=== PATIENT | female | born 1995 | race Two or more races ===

== ENCOUNTER 2016-12-18 02:39 | Emergency (ER) | payer SELFPAY ==
[~2016-12-18] VITALS: Ht 162.6 cm; Wt 78.5 kg
[2016-12-18] MEDS ORDERED: FENTANYL PF 100 MCG/2 ML VIAL. IV PRN (03:15)
[2016-12-18] MEDS ORDERED: IV NORMAL SALINE 1000ML BAG 1,000 ML IV SCH (03:15)
[2016-12-18 03:27] LABS: BASO % 0 % (0-3); EOS % 1 % (0-3); HEMATOCRIT 38.2 % (36.0-47.0); HEMOGLOBIN 12.6 g/dL (12.0-15.5); LYMPH # 5.6 x10^3/uL (1.0-4.8); LYMPH % 43 % (24-48); MEAN CORPUSCULAR HEMOGLOBIN 29 pg (25-35); MEAN CORPUSCULAR HGB CONC 33 g/dL (31-37); MEAN CORPUSCULAR VOLUME 89 fL (79-100); MONO % 9 % (0-9); NEUT % 47 % (31-73); PLATELET COUNT 373 x10^3/uL (140-400); RED BLOOD COUNT 4.28 x10^6/uL (3.50-5.40); RED CELL DISTRIBUTION WIDTH 14.3 % (11.5-14.5); WHITE BLOOD COUNT 13.1 x10^3/uL (4.0-11.0)
[2016-12-18] MEDS ORDERED: ONDANSETRON PF 4 MG/2 ML VIAL. IV ONE (03:30)
[2016-12-18 03:32] LABS: BILIRUBIN,URINE NEGATIVE (NEG); GLUCOSE,URINE NEGATIVE (NEG); NITRITE,URINE NEGATIVE (NEG); PH,URINE 6.5; PROTEIN,URINE 30 mg/dL (NEG-TRACE)
[2016-12-18 03:38] LABS: BACTERIA,URINE MODERATE /HPF (0-FEW); RBC,URINE OCC /HPF (0-2); SQUAMOUS EPITHELIAL CELL,UR MOD /LPF
[2016-12-18 03:39] LABS: BARBITURATES NEG (NEG); BENZODIAZEPINES NEG (NEG); CANNABINOIDS POS (NEG); COCAINE NEG (NEG); METHADONE NEG (NEG); OPIATES NEG (NEG); PHENCYCLIDINE NEG (NEG)
[2016-12-18 03:40] LABS: CALCIUM 9.2 mg/dL (8.5-10.1); CREATININE 0.8 mg/dL (0.6-1.0); GFR 89.7; NEG OBC SER NEG; POS OBC SER POS; POTASSIUM 3.5 mmol/L (3.5-5.1)
[2016-12-18 03:40] LABS: ETHANOL, URINE NEG (NEG)
[2016-12-18 03:46] LABS: ALBUMIN 3.7 g/dL (3.4-5.0); ALBUMIN/GLOBULIN RATIO 0.9 (1.0-1.7); TOTAL BILIRUBIN 0.3 mg/dL (0.2-1.0); TOTAL PROTEIN 7.7 g/dL (6.4-8.2)
--- NOTE | 2016-12-18 03:56 | RAD ---
PROCEDURE Ultrasound limited abdomen HISTORY Right upper quadrant pain and nausea and vomiting TECHNIQUE Sonographic examination of the right upper quadrant was performed and multiple static images were obtained. FINDINGS Sonographic examination of the right upper quadrant was performed and multiple static images were obtained. There is increased echogenicity in the liver which further limits ultrasound sensitivity for possible solid liver lesion. The majority liver is visualized appears homogeneous. The pancreas is not well seen due to overlying bowel gas. There are a few tiny stones in the gallbladder but no wall thickening surrounding fluid or tenderness. The right kidney appears normal measures 10.5 centimeters in length. The common bile duct appears normal and measures 4.4 millimeters in diameter. IMPRESSION One. Fatty infiltration of the liver. Cholelithiasis without evidence of acute cholecystitis. Electronically signed by: Vernon Vo MD (Dec 18, 2016 03:55:27)
[2016-12-18 04:47] VITALS: BP 107/65
[2016-12-18] MEDS ORDERED: NAPROXEN 250 MG TABLET PO ONE (05:00)
--- NOTE | 2016-12-18 07:15 | RAD ---
Acute abdomen series History: Chest and abdominal pain beginning tonight. Comparison: None. Findings: Frontal view of the chest. Cardiac silhouette appears within normal limits for size. No pneumoperitoneum or pneumothorax is identified. No acute infiltrate is seen. Supine and upright views of the abdomen. No dilated loops of bowel are seen. Moderate colonic stool is present. Impression: No acute abnormality identified in the chest or abdomen.
--- NOTE | 2016-12-18 07:39 | ED.ADGEN ---
Past Medical History Past Medical History: No Pertinent History Past Surgical History: No Surgical History Alcohol Use: None Drug Use: None Adult General Chief Complaint Chief Complaint: CHEST PAIN HPI HPI Patient is a 21 year old woman, who presents emergency department complaining of right chest and right upper quadrant pain, associated with nausea that began suddenly while she was lying in bed. Patient denies any injuries, denies any similar symptoms, denies any fevers, any chills, any vomiting, diarrhea, any lower abdominal pain, any weakness, numbness, tingling, ingestions or exposures. No urinary complaints, appears uncomfortable, is holding her side and moaning upon arrival to the emergency department. No palpitations, patient noted be mildly tachycardic, heart rate in the low 100s, mildly tachypnic, oxygen saturations 100% upon arrival to the emergency department. Patient's significant other is at bedside. Review of Systems Review of Systems Constitutional: Denies fever or chills. [] Eyes: Denies change in visual acuity. [] HENT: Denies nasal congestion or sore throat. [] Respiratory: Denies cough or shortness of breath. [] Cardiovascular: Right-sided chest pain, no edema. GI: Right her chronic abdominal pain, nausea, no vomiting, bloody stools or diarrhea.. [] : Denies dysuria. [] Musculoskeletal: Denies back pain or joint pain. [] Integument: Denies rash. [] Neurologic: Denies headache, focal weakness or sensory changes. [] Endocrine: Denies polyuria or polydipsia. [] Lymphatic: Denies swollen glands. [] Psychiatric: Denies depression or anxiety. [] Current Medications Current Medications Current Medications Medications (Trade) Dose Ordered Sig/Meliton Start Time Stop Time Status Last Admin Dose Admin Fentanyl Citrate 50 mcg 50 mcg PRN Q15MIN PRN 12/18/16 03:15 12/18/16 05:16 DC 12/18/16 03:29 50 MCG Naproxen (Naprosyn) 250 mg 1X ONCE 12/18/16 05:00 12/18/16 05:01 DC 12/18/16 05:06 250 MG Ondansetron HCl (Zofran) 4 mg 1X ONCE 12/18/16 03:30 12/18/16 03:31 DC 12/18/16 03:29 4 MG Sodium Chloride (Iv Sodium Chloride 0.9% 1000ml Bag) 1,000 ml @ 1,000 mls/hr Q1H 12/18/16 03:15 12/18/16 04:14 DC 12/18/16 03:29 1,000 MLS/HR Allergies Allergies Allergies Coded Allergies Type Severity Reaction Last Updated Verified No Known Drug Allergies 12/18/16 No Physical Exam Physical Exam Constitutional: Well developed, well nourished, mild distress, patient tearful, non-toxic appearance. [] HENT: Normocephalic, atraumatic, bilateral external ears normal, oropharynx moist, no oral exudates, nose normal. [] Eyes: PERRLA, EOMI, conjunctiva normal, no discharge. [] Neck: Normal range of motion, no tenderness, supple, no stridor. [] Cardiovascular:Heart rate regular rhythm, no murmur [] Lungs & Thorax: Bilateral breath sounds clear to auscultation , no wheezing, rhonchi, rales. Patient with reproducible anterior chest wall tenderness and right upper quadrant tenderness. [] Abdomen: Bowel sounds normal, soft, right upper quadrant tenderness as stated, no rebound, rigidity or guarding, no masses, no pulsatile masses. [] Skin: Warm, dry, no erythema, no rash. [] Back: No tenderness, no CVA tenderness. [] Extremities: No tenderness, no cyanosis, no clubbing, ROM intact, no edema. Negative Homans sign. [] Neurologic: Alert and oriented X 3, normal motor function, normal sensory function, no focal deficits noted. [] Psychologic: Affect normal, judgement normal, mood normal. [] Current Patient Data Vital Signs Vital Signs Date Time Temp Pulse Resp B/P Pulse Ox O2 Delivery O2 Flow Rate FiO2 12/18/16 04:47 72 20 107/65 100 Room Air 12/18/16 02:50 98.6 98.6 Lab Values Laboratory Tests Test 12/18/16 02:24 12/18/16 02:51 12/18/16 03:18 POC Urine HCG, Qualitative Hcg negative (Negative) White Blood Count 13.1x10^3/uL (4.0-11.0) H Red Blood Count 4.28x10^6/uL (3.50-5.40) Hemoglobin 12.6g/dL (12.0-15.5) Hematocrit 38.2% (36.0-47.0) Mean Corpuscular Volume 89fL (79-100) Mean Corpuscular Hemoglobin 29pg (25-35) Mean Corpuscular Hemoglobin Concent 33g/dL (31-37) Red Cell Distribution Width 14.3% (11.5-14.5) Platelet Count 373x10^3/uL (140-400) Neutrophils (%) (Auto) 47% (31-73) Lymphocytes (%) (Auto) 43% (24-48) Monocytes (%) (Auto) 9% (0-9) Eosinophils (%) (Auto) 1% (0-3) Basophils (%) (Auto) 0% (0-3) Neutrophils # (Auto) 6.1x10^3uL (1.8-7.7) Lymphocytes # (Auto) 5.6x10^3/uL (1.0-4.8) H Monocytes # (Auto) 1.2x10^3/uL (0.0-1.1) H Eosinophils # (Auto) 0.2x10^3/uL (0.0-0.7) Basophils # (Auto) 0.0x10^3/uL (0.0-0.2) D-Dimer (Madelin) < 0.27ug/mlFEU (0.00-0.50) Sodium Level 144mmol/L (136-145) Potassium Level 3.5mmol/L (3.5-5.1) Chloride Level 105mmol/L (98-107) Carbon Dioxide Level 30mmol/L (21-32) Anion Gap 9 (6-14) Blood Urea Nitrogen 13mg/dL (7-20) Creatinine 0.8mg/dL (0.6-1.0) Estimated GFR (Cockcroft-Gault) 89.7 BUN/Creatinine Ratio 16 (6-20) Glucose Level 139mg/dL (70-99) H Calcium Level 9.2mg/dL (8.5-10.1) Total Bilirubin 0.3mg/dL (0.2-1.0) Aspartate Amino Transferase (AST) 21U/L (15-37) Alanine Aminotransferase (ALT) 23U/L (14-59) Alkaline Phosphatase 65U/L (46-116) Total Protein 7.7g/dL (6.4-8.2) Albumin 3.7g/dL (3.4-5.0) Albumin/Globulin Ratio 0.9 (1.0-1.7) L Lipase 329U/L (73-393) Serum Test, Qualitative Negative (NEG) Urine Collection Type Unknown Urine Color Yellow Urine Clarity Cloudy Urine pH 6.5 Urine Specific [place] >=1.030 Urine Protein 30mg/dL (NEG-TRACE) Urine Glucose (UA) Negativemg/dL (NEG) Urine Ketones (Stick) Negativemg/dL (NEG) Urine Blood Negative (NEG) Urine Nitrite Negative (NEG) Urine Bilirubin Negative (NEG) Urine Urobilinogen Dipstick 1.0mg/dL (0.2 mg/dL) Urine Leukocyte Esterase Moderate (NEG) Urine RBC Occ/HPF (0-2) Urine WBC 5-10/HPF (0-4) Urine Squamous Epithelial Cells Mod/LPF Urine Bacteria Moderate/HPF (0-FEW) Urine Mucus Marked/LPF Urine Opiates Screen Neg (NEG) Urine Methadone Screen Neg (NEG) Urine Barbiturates Neg (NEG) Urine Phencyclidine Screen Neg (NEG) Urine Amphetamine/Methamphetamine Pos (NEG) Urine Benzodiazepines Screen Neg (NEG) Urine Cocaine Screen Neg (NEG) Urine Cannabinoids Screen Pos (NEG) Urine Ethyl Alcohol Neg (NEG) Laboratory Tests 12/18/16 02:51 Laboratory Tests 12/18/16 02:51 EKG EKG EC: Sinus tachycardia, heart rate 105 beats/minute, upright axis, QTC of 445, GA of 126, QRS of 86, no ST elevations or depressions, mild baseline artifact noted, as interpreted by me. Radiology/Procedures Radiology/Procedures [] [facility] [address] [place] [address] IMAGING REPORT Signed PATIENT: KAYLEE KAT ACCOUNT: [id number] : 1995 LOCATION: ER AGE: 21 SEX: F EXAM STATUS: DEP ER ORD. PHYSICIAN: OMARI AMADO DO REASON: Chest/abd pain PROCEDURE: ACUTE ABDOMEN SERIES Acute abdomen series History: Chest and abdominal pain beginning tonight. Comparison: None. Findings: Frontal view of the chest. Cardiac silhouette appears within normal limits for size. No pneumoperitoneum or pneumothorax is identified. No acute infiltrate is seen. Supine and upright views of the abdomen. No dilated loops of bowel are seen. Moderate colonic stool is present. Impression: No acute abnormality identified in the chest or abdomen. DICTATED and SIGNED BY: REGIS MOODY MD DATE: 12/18/16 0711 CC: OMARI AMADO DO; NO PCP ~ Impressions: [facility] [address] [place] [address] IMAGING REPORT Signed PATIENT: KAYLEE KAT ACCOUNT: [id number] : 1995 LOCATION: ER AGE: 21 SEX: F EXAM STATUS: REG ER ORD. PHYSICIAN: OMARI AMADO DO REASON: RUQ pain PROCEDURE: ABDOMEN LTD PROCEDURE Ultrasound limited abdomen HISTORY Right upper quadrant pain and nausea and vomiting TECHNIQUE Sonographic examination of the right upper quadrant was performed and multiple static images were obtained. FINDINGS Sonographic examination of the right upper quadrant was performed and multiple static images were obtained. There is increased echogenicity in the liver which further limits ultrasound sensitivity for possible solid liver lesion. The majority liver is visualized appears homogeneous. The pancreas is not well seen due to overlying bowel gas. There are a few tiny stones in the gallbladder but no wall thickening surrounding fluid or tenderness. The right kidney appears normal measures 10.5 centimeters in length. The common bile duct appears normal and measures 4.4 millimeters in diameter. IMPRESSION One. Fatty infiltration of the liver. Cholelithiasis without evidence of acute cholecystitis. Electronically signed by: Bentley Guerra MD (Dec 18, 2016 03:55:27) DICTATED and SIGNED BY: BENTLEY GUERRA III, MD DATE: 12/18/16 0355 CC: OMARI AMADO DO; NO PCP ~ Course & Med Decision Making Course & Med Decision Making Pertinent Labs and Imaging studies reviewed. (See chart for details) Patient received pain medication, laboratory studies, and imaging. Ultrasound of the right upper quadrant revealed fatty liver, with cholelithiasis no evidence of cholecystitis, laboratory studies were unremarkable aside from UDS positive for methamphetamines and marijuana. Acute abdominal series also unremarkable. On reevaluation patient is asleep, she states that her pain is improved upon awaking, I did discuss with the patient her positive drug screen, patient did deny using any substances. I do not believe that the patient's symptoms are consistent with a significant pulmonary or cardiac etiology. Patient is in agreement with being discharged home. At that point patient was ambulated in the emergency department, without difficulty, received naproxen, clear and detailed return instructions and precautions, and was discharged home with her significant other in stable condition. Dragon Disclaimer Dragon Disclaimer This electronic medical record was generated, in whole or in part, using a voice recognition dictation system. Departure Impression: Primary Impression: Chest pain Additional Impression: Polysubstance abuse Disposition: 01 HOME, SELF-CARE Condition: IMPROVED Problem Qualifiers OMARI AMADO DO Dec 18, 2016 07:39
--- NOTE | 2016-12-18 07:43 | EKG ---
[facility] [address] [place] [address] Test Date: 2016-12-18 Test Time: 02:47:44 Pat Name: KAYLEE KAT Department: Room: Gender: F Gas Worker: : 1995 Requested By: OMARI AMADO Order Number: [id number] Reading MD: Measurements Intervals [place] Rate: 105 P: -15 [place]: 126 QRS: 67 QRSD: 86 T: 65 QT: 334 QTc: 445 Interpretive Statements SINUS TACHYCARDIA LEFT ATRIAL ABNORMALITY ABNORMAL ECG RI6.01 No previous ECG available for comparison
== END 2016-12-18 05:16 | disposition home or self-care (01) ==
LOC: ER 02:39
DX: R07.9 Chest pain, unspecified (principal); R10.11 Right upper quadrant pain; R11.2 Nausea with vomiting, unspecified; G89.29 Other chronic pain; F19.10 Other psychoactive substance abuse, uncomplicated
CPT/HCPCS: 36415; 74022; 76705; 80053; 81001; 81025; 83690; 84703; 85027; 85379; 87086; 93005; 96361; 96374; 96375; 99285; G0481; J2405; J3010; J7030

== ENCOUNTER 2020-07-20 06:32 | Emergency (ER) | payer SELFPAY ==
[~2020-07-20] VITALS: Ht 162.6 cm; Wt 65.9 kg
[2020-07-20 06:59] LABS: BASO # 0.1 x10^3/uL (0.0-0.2); BASO % 2 % (0-3); EOS # 0.2 x10^3/uL (0.0-0.7); EOS % 2 % (0-3); HEMATOCRIT 39.1 % (36.0-47.0); HEMOGLOBIN 13.1 g/dL (12.0-15.5); LYMPH # 3.5 x10^3/uL (1.0-4.8); LYMPH % 35 % (24-48); MEAN CORPUSCULAR HEMOGLOBIN 30 pg (25-35); MEAN CORPUSCULAR HGB CONC 34 g/dL (31-37); MEAN CORPUSCULAR VOLUME 90 fL (79-100); MONO % 10 % (0-9); NEUT # 5.3 x10^3/uL (1.8-7.7); NEUT % 52 % (31-73); PLATELET COUNT 471 x10^3/uL (140-400); RED BLOOD COUNT 4.32 x10^6/uL (3.50-5.40); RED CELL DISTRIBUTION WIDTH 13.6 % (11.5-14.5); WHITE BLOOD COUNT 10.1 x10^3/uL (4.0-11.0)
[2020-07-20 07:02] LABS: BILIRUBIN,URINE NEGATIVE (NEG); CLARITY,URINE CLEAR; COLOR,URINE YELLOW; NITRITE,URINE NEGATIVE (NEG); PH,URINE 5.5 (<5.0-8.0); PROTEIN,URINE NEGATIVE (NEG-TRACE); UROBILINOGEN,URINE 0.2 mg/dL (0.2 mg/dL)
[2020-07-20 07:38] LABS: BACTERIA,URINE 0 /HPF (0-FEW); RBC,URINE 0 /HPF (0-2); WBC,URINE OCC /HPF (0-4)
--- NOTE | 2020-07-20 07:40 | RAD ---
OB <14 WKS W/TV DATE: 07/20/2020 6:49 AM INDICATION: vaginal bleeding, . LMP 06/04/2020 COMPARISON: None. TECHNIQUE: Transabdominal and transvaginal ultrasonography of the pelvis was performed. Color Doppler and duplex were utilized as appropriate. FINDINGS: The uterus measures 8.9 x 4.7 x 3.8 cm. Mild fluid in the lower uterine segment without vascularity. Small cystic structure along the cervix, probably nabothian cyst. No evidence of intrauterine gestation. There is no free pelvic fluid. The right ovary measures 3 x 2.8 x 1.8 cm. The left ovary measures 2.7 x 3 x 1.7 cm. Left ovarian 1.1 cm simple cyst with no vascularity. No evidence of ovarian torsion. There is normal blood flow to both ovaries by color Doppler with arterial and venous waveforms detected. IMPRESSION: 1. No evidence of intrauterine gestation. Small amount fluid in the lower uterus, possibly blood products. Correlate with hCG values. Findings may relate to failed first trimester . 2. Left adnexal 1.1 cm simple cyst without vascularity, likely physiologic. Electronically signed by: Ruslan Guerrero MD (07/20/2020 7:37 AM) [id number]
[2020-07-20 08:21] VITALS: BP 118/75
--- NOTE | 2020-07-20 08:25 | ED.ADGEN ---
Past Medical History Past Medical History: No Pertinent History Past Surgical History: Cholecystectomy Smoking Status: Former Smoker Alcohol Use: None Drug Use: None General Adult EDM: Chief Complaint: ABDOMINAL PAIN IN HPI: HPI: Patient is 25-year-old G1, P0 who presents to the emergency room complaining of vaginal bleeding and lower abdominal cramping. Patient believes that she is ar ound 6 weeks . She had positive test last week. She states yesterday evening she developed cramping worse on the left side and then had several large blood clots. She has had some mild spotting today. Pain seems to be better today. She has not had an ultrasound with this . She denies any other symptoms. Review of Systems: Review of Systems: Complete ROS is negative unless otherwise documented in HPI Allergies: Allergies: Allergies Coded Allergies Type Severity Reaction Last Updated Verified No Known Drug Allergies 12/18/16 No Physical Exam: PE: General: Awake, alert, NAD. Well Nourished, well hydrated. Cooperative HEENT: Atraumatic, EOMI, PERRL, airway patent, moist oral mucosa Neck: Supple, trachea midline Respiratory: CTA bilaterally, normal effort, no wheezing/crackles CV: RRR, no murmur, cap refill <2 GI: Soft, nondistended, nontender, no masses MSK: No obvious deformities Skin: Warm, dry, intact Neuro: A&O x3, speech NL, sensory and motor grossly intact, no focal deficits Psych: Normal affect, normal mood, not suicidal or homicidal Current Patient Data: Labs: Laboratory Tests Test 07/20/20 06:39 07/20/20 06:41 07/20/20 06:45 Urine Collection Type Unknown Urine Color Yellow Urine Clarity Clear Urine pH 5.5 (<5.0-8.0) Urine Specific [place] 1.025 (1.000-1.030) Urine Protein Negative mg/dL (NEG-TRACE) Urine Glucose (UA) Negative mg/dL (NEG) Urine Ketones (Stick) Negative mg/dL (NEG) Urine Blood Large (NEG) Urine Nitrite Negative (NEG) Urine Bilirubin Negative (NEG) Urine Urobilinogen Dipstick 0.2 mg/dL (0.2 mg/dL) Urine Leukocyte Esterase Trace (NEG) Urine RBC 0 /HPF (0-2) Urine WBC Occ /HPF (0-4) Urine Squamous Epithelial Cells Mod /LPF Urine Bacteria 0 /HPF (0-FEW) Urine Mucus Marked /LPF POC Urine HCG, Qualitative Hcg positive (Negative) White Blood Count 10.1 x10^3/uL (4.0-11.0) Red Blood Count 4.32 x10^6/uL (3.50-5.40) Hemoglobin 13.1 g/dL (12.0-15.5) Hematocrit 39.1 % (36.0-47.0) Mean Corpuscular Volume 90 fL (79-100) Mean Corpuscular Hemoglobin 30 pg (25-35) Mean Corpuscular Hemoglobin Concent 34 g/dL (31-37) Red Cell Distribution Width 13.6 % (11.5-14.5) Platelet Count 471 x10^3/uL (140-400) H Neutrophils (%) (Auto) 52 % (31-73) Lymphocytes (%) (Auto) 35 % (24-48) Monocytes (%) (Auto) 10 % (0-9) H Eosinophils (%) (Auto) 2 % (0-3) Basophils (%) (Auto) 2 % (0-3) Neutrophils # (Auto) 5.3 x10^3/uL (1.8-7.7) Lymphocytes # (Auto) 3.5 x10^3/uL (1.0-4.8) Monocytes # (Auto) 1.0 x10^3/uL (0.0-1.1) Eosinophils # (Auto) 0.2 x10^3/uL (0.0-0.7) Basophils # (Auto) 0.1 x10^3/uL (0.0-0.2) Maternal Serum HCG Beta Subunit 49 mIU/mL (0-5) H Laboratory Tests 07/20/20 06:45 Vital Signs: Vital Signs Date Time Temp Pulse Resp B/P (MAP) Pulse Ox O2 Delivery O2 Flow Rate FiO2 07/20/20 08:21 88 16 118/75 (89) 98 Room Air 07/20/20 06:41 98.4 98.4 EKG: EKG: [] Heart Score: Risk Factors: Risk Factors: DM, Current or recent (<one month) smoker, HTN, HLP, family history of CAD, obesity. Risk Scores: Score 0 - 3: 2.5% MACE over next 6 weeks - Discharge Home Score 4 - 6: 20.3% MACE over next 6 weeks - Admit for Clinical Observation Score 7 - 10: 72.7% MACE over next 6 weeks - Early Invasive Strategies Radiology/Procedures: Radiology/Procedures: [] Course & Med Decision Making: Course & Med Decision Making Pertinent Labs and Imaging studies reviewed. (See chart for details) Patient is a 25 year-old G 1 P 0 who presents to the Emergency Room with vaginal bleeding and cramping. Patient has not seen passage of tissue. She has not had a formal ultrasound and does not have a confirmed IUP. UA, Rh type, OB ultrasound, test were ordered. At this time, ultrasound shows no ectopic or IUP. Patient does not need rhogam. I have discussed with the patient that they are likely have miscarriage or early . We have discussed early on in we are unable to prevent miscarriages. We will discussed pelvic rest until she follows up with OBGYN. She will return to the Emergency Room if she has a large amount of bleeding, syncope, SOB. Patient's test results and vitals while in the ED were fully reviewed and discussed with the patient. Patient is stable and at this time does not need admission to the hospital. We have discussed strict return precautions and the importance of following up with their Primary Care Physician. Patient stated understanding and was given an opportunity to ask any questions. Michaelon Disclaimer: Karen Disclaimer: This electronic medical record was generated, in whole or in part, using a voice recognition dictation system. Departure Departure Impression: Primary Impression: Spontaneous miscarriage Disposition: 01 DC HOME SELF CARE/HOMELESS Condition: STABLE Referrals: NO PCP (PCP) REGIS LOWE MD Please follow up early next week for repeat hormone levels. Today your b-hcg was 49. Patient Instructions: Miscarriage LUKE PIERCE MD Jul 20, 2020 08:25
== END 2020-07-20 08:39 | disposition home or self-care (01) ==
LOC: ER 06:32
DX: O03.9 Complete or unspecified spontaneous abortion without complication (principal); R10.30 Lower abdominal pain, unspecified; Z90.49 Acquired absence of other specified parts of digestive tract; Z87.891 Personal history of nicotine dependence; Z3A.01 Less than 8 weeks gestation of pregnancy
CPT/HCPCS: 36415; 76801; 76817; 81001; 81025; 84702; 85025; 86901; 99284

== ENCOUNTER 2021-03-23 15:43 | Emergency (ER) | payer SELFPAY ==
[~2021-03-23] VITALS: Ht 162.6 cm; Wt 78.6 kg
--- NOTE | 2021-03-23 18:36 | ED.ADGEN ---
Past Medical History Past Medical History: No Pertinent History Past Surgical History: No Surgical History, Cholecystectomy Smoking Status: Former Smoker Alcohol Use: None Drug Use: None General Adult EDM: Chief Complaint: COUGH HPI: HPI: Patient is a 26 year old female patient presenting with cough is productive of yellow phlegm for the past 3 days. Has had chills but denies any fevers. Also had some episodes of loose stools and a mild headache. Has not had her Covid vaccines. Smokes tobacco daily. Denies any history of bronchitis or pneumonia. No known sick contacts. Review of Systems: Review of Systems: All other systems within normal limits except for as noted in the HPI Allergies: Allergies: Allergies Coded Allergies Type Severity Reaction Last Updated Verified No Known Drug Allergies 12/18/16 No Physical Exam: PE: Constitutional: Well developed, well nourished, no acute distress, non-toxic appearance. [] HENT: Normocephalic, atraumatic, bilateral external ears normal, nose normal. [] Eyes: PERRLA, conjunctiva normal, no discharge. [] Neck: No rigidity, supple, no stridor. [] Cardiovascular: Regular rate and rhythm, brisk cap refill [] Lungs & Thorax: Non labored symmetric respirations, no tachypnea or respiratory distress. Lungs clear to auscultation [] Abdomen: Soft, nondistended. Skin: Warm, dry, no erythema, no rash. [] Back: Unremarkable Extremities: No deformities, range of motion grossly intact, no lower extremity edema [] Neurologic: Alert and oriented X 3, no focal deficits noted. [] Psychologic: Affect normal, judgement normal, mood normal. [] Current Patient Data: Labs: Laboratory Tests Test 03/23/21 18:57 POC Urine HCG, Qualitative Hcg negative (Negative) Vital Signs: Vital Signs Date Time Temp Pulse Resp B/P (MAP) Pulse Ox O2 Delivery O2 Flow Rate FiO2 03/23/21 18:18 98.7 97 18 133/79 (89) 99 Room Air 98.7 EKG: EKG: [] Heart Score: C/O Chest Pain: No Risk Factors: Risk Factors: DM, Current or recent (<one month) smoker, HTN, HLP, family history of CAD, obesity. Risk Scores: Score 0 - 3: 2.5% MACE over next 6 weeks - Discharge Home Score 4 - 6: 20.3% MACE over next 6 weeks - Admit for Clinical Observation Score 7 - 10: 72.7% MACE over next 6 weeks - Early Invasive Strategies Radiology/Procedures: Radiology/Procedures: [] Course & Med Decision Making: Course & Med Decision Making Pertinent Labs and Imaging studies reviewed. (See chart for details) [] Karen Disclaimer: Karen Disclaimer: This electronic medical record was generated, in whole or in part, using a voice recognition dictation system. Departure Departure Impression: Primary Impression: Pneumonia Disposition: HOME / SELF CARE / HOMELESS Condition: STABLE Referrals: NO PCP (PCP) Additional Instructions: You have been tested for or diagnosed with COVID-19. It is an infection caused by a new type of coronavirus. COVID-19 will cause cold-like or mild flu symptoms in most. It can cause more severe symptoms like problems breathing in some. There is no treatment for COVID-19. The body will clear the infection over time. Self-care will help to ease discomfort. Steps to Take: Self-Care Rest as needed. Healthy habits may help you feel better. Steps include: Choose healthy foods including fruits and vegetables. Drink water throughout the day. Get plenty of sleep each night. If you smoke, try to quit. It may ease breathing. Avoid alcohol. Keep Others Healthy The virus can spread to others. Droplets are released every time you sneeze or cough. The droplets can get into the mouth, nose, or eyes of people near you and lead to infection. To lower the chances of spreading COVID-19 to others: Stay at home until your doctor has said it is safe to leave. If you tested positive this will mean staying isolated until both of the following are true: At least 7 days have passed since the start of illness. You are free of fever for at least 72 hours without the use of medicine. During this time: - Avoid public areas, events, or transportation. Do not return to work or school until your doctor has said it is safe to do so. - Call ahead if you need to go to a medical center. Let them know you may have COVID-19. It will help them guide you where to go. They may also ask you to wear a facemask when you come to the office. - If you call for emergency medical services, let them know you may have COVID- 19. While at home: - Try to avoid close contact with others. Stay about 6 feet away. - If possible, spend most of your time in a separate room from others. - Use a face mask if you will be in close contact with others such as sharing a room or vehicle. - Have someone wipe down common surfaces in the home. Use household artillery officer every day on areas like doorknobs, counters, or sinks. - Cough or sneeze into a tissue. Throw the tissue away right after use. If a tissue is not available, cough or sneeze into your elbow. - Wash your hands often. Wash them after sneezing or coughing. Use soap and water and wash for at least 20 seconds. Alcohol based hand janitor cleaner can be used if soap and water is not available. - Do not prepare food for others. Avoid sharing personal items like forks, spoons, or toothbrushes. - Avoid close contact with pets while you are sick. There is no evidence of the virus passing to pets. This is a safety step until more is known about this virus. Isolation can be frustrating. Social interaction can help. Keep in touch with friends and family through phone and tech options. You can still interact with others in your home, just keep a safe distance of about 6 feet. Follow-up: Your doctors office will check in with you to see if there are any changes in your health. You may be asked to keep track of symptoms to share with them. They will also let you know when you are clear to be in public again. Problems to Look Out For: Contact your doctor if your recovery is not going as you expect. Get emergency care if you have problems such as: - Trouble breathing - Nonstop chest pain or pressure - Changes in awareness, confusion, or problems waking - Lips or face have bluish color - Worsening of symptoms If you think you have an emergency, call for emergency medical services right away. As taken from [facility] Prednisone (PREDNISONE) 50 Mg Tablet 1 TAB PO DAILY for steroid for 5 Days, #5 TAB Prov: MELVA SPENCER MD 03/23/21 Doxycycline Monohydrate (DOXYCYCLINE MONOHYDRATE) 100 Mg Capsule 1 CAP PO BID for antibiotic for 5 Days, #10 CAP Prov: MELVA SPENCER MD 03/23/21 MELVA SPENCER MD Mar 23, 2021 18:36
[2021-03-23] MEDS ORDERED: PRED50TA PO (20:50)
[2021-03-23] MEDS ORDERED: DOXY-181 PO (20:50)
[2021-03-23 21:33] VITALS: BP 133/79
--- NOTE | 2021-03-23 22:51 | RAD ---
Exam Date: 03/23/2021 7:07 PM XR CHEST 2V Indication: Reason: cough / Spl. Instructions: / History: . FINDINGS/ IMPRESSION: The cardiac silhouette and pulmonary vasculature are within normal limits. There is no focal consolidation, pleural effusion or pneumothorax. The visualized osseous structures are intact. Electronically signed by: Travis Santos MD (03/23/2021 10:48 PM) [facility]
== END 2021-03-23 21:15 | disposition home or self-care (01) ==
LOC: ER 15:43
DX: J18.9 Pneumonia, unspecified organism (principal); Z20.822 Contact with and (suspected) exposure to COVID-19; Z87.891 Personal history of nicotine dependence
CPT/HCPCS: 71046; 81025; 99284; U0003; U0005